=== PATIENT | female | born 1990 | race Caucasian/White ===

== ENCOUNTER → 2021-09-06 13:19 | Outpatient (CLI) | payer OTHER, SELFPAY ==
--- NOTE | 2021-09-06 13:23 | DI.US.S_ITS ---
PROCEDURE: US OB <= 14 WEEKS FETUS INDICATIONS: DATING. LMP 07/05/21 OUTSIDE/PRIOR DATING DATA: Last menstrual period (LMP): 07/05/2021 LMP-based estimated date of delivery (KAM[facility]): 04/11/2022. First dating scan (date and location): 09/06/2021. Estimated date of delivery (K[facility]) from first dating scan: 04/12/2022 The calculations are made using the study generated KAMRON of 04/12/2022. TECHNIQUE: Real-time scanning was performed of the fetus and maternal pelvic organs, with image documentation. Endovaginal scanning was also performed to better visualize the fetus and maternal ovaries. COMPARISON: None. FINDINGS: Embryo: Single intrauterine gestational sac is seen with fetus and yolk sac seen. [place]-rump length measures 2.2 cm. Estimated gestational age is 8 weeks, 6 days. Heart rate: 171 beats per minute. Maternal organs: Ovaries are visualized and are within normal limits. Incidentally noted of moderate right renal palliative desist and mild dilatation of proximal right ureter. There is also mild left renal caliectasis and proximal hydroureter. Moderate maternal bladder postvoid residual is seen measures 201 cc. IMPRESSION: 1. Single intrauterine gestational sac with fetus and yolk sac seen. heart rate is 171 beats per minute. Estimated gestational age is 8 weeks, 6 days. 2. Normal appearing bilateral ovaries. 3. Incidentally noted of moderate right-sided hydronephrosis and proximal hydroureter and mild left-sided hydronephrosis and proximal hydroureter. Moderate postvoid residual in maternal bladder is also seen as above. We strive to produce accurate, complete, and clear reports of imaging services. To assist us in improving patient care, this report was composed using standard report templates and voice recognition software. Therefore, it may contain abnormal punctuation, insertions and/or omissions. Occasional wrong-word or sound-alike substitutions may occur. Though we review the report and make efforts to correct it, we do recommend that the report be read carefully in proper context to recognize any text inaccuracies. Dictated by: Alberto Ariza M.D. on 09/06/2021 at 15:56 Approved by: Alberto Ariza M.D. on 09/06/2021 at 15:59
[2021-09-06 14:43] LABS: Appearance Urine UA CLEAR; Bilirubin Urine UA NEGATIVE (NEGATIVE); Glucose Urine UA NEGATIVE (Negative); Ketones Urine UA NEGATIVE (NEGATIVE); Leukocyte Esterase Urine UA NEGATIVE (NEGATIVE); Nitrite Urine UA NEGATIVE (Negative); Occult Blood Urine UA NEGATIVE (Negative); Protein Urine UA NEGATIVE (Negative); Specific Gravity Urine UA <=1.005 (1.000-1.035); Urobilinogen Urine UA 0.2 E.U./dL (0.2)
[2021-09-06 14:46] LABS: pH Urine UA 6.5 (4.5-8.0)
[2021-09-06 14:47] LABS: Color Urine UA STRAW
[2021-09-06 14:54] LABS: Add Manual Diff / Slide Review NO; Basophils Absolute Auto 0 /uL (0-100); Basophils Percent Auto 0.4 % (0-2); Eosinophils Absolute Auto 100 /uL (0-450); Eosinophils Percent Auto 0.8 % (2-4); Hematocrit 37.3 % (36-46); Hemoglobin 12.9 g/dL (12.0-16.0); Lymphocytes Absolute Auto 2000 /uL (1100-4500); Lymphocytes Percent Auto 21.3 % (25-40); Mean Corpuscular HGB Conc 34.5 % (30-36); Mean Corpuscular Hemoglobin 29.4 PG (26-34); Mean Corpuscular Volume 85.1 fL (80-100); Monocytes Absolute Auto 500 /uL (0-900); Monocytes Percent Auto 5.7 % (3-14); Neutrophils Absolute Auto 6800 /uL (1500-7000); Neutrophils Percent Auto 71.8 % (50-75); Platelet Count 344 X10^3/uL (150-400); Red Blood Cell Count 4.38 X10^6/uL (4.0-5.2); Red Cell Distribution Width 12.8 % (11.6-14.8); White Blood Cell Count 9.5 X10^3/uL (4.5-11.0)
[2021-09-06 16:59] LABS: Hepatitis B Surface Antigen NEGATIVE s/c (NEGATIVE); Rubella Antibody IgG 89.9 IU/mL (>15)
[2021-09-06 17:16] LABS: HIV 1 & 2 Ab/Ag 4th Gen Combo NEGATIVE (NEGATIVE); Hep C Virus Ab w/Reflex Quant NEGATIVE s/c (NEGATIVE)
[2021-09-07 05:26] LABS: RPR Screen Non Reactive (Non Reactive)
[2021-09-07 08:08] LABS: Varicella IgG Antibody 1278 index (Immune >165)
== END ==
PROVIDERS: Referring Provider Family Medicine; Visit Provider Family Medicine
DX: O99.891 Other specified diseases and conditions complicating pregnancy (principal); N13.30 Unspecified hydronephrosis; Z3A.08 8 weeks gestation of pregnancy
CPT/HCPCS: 36415; 76801; 76817; 80055; 81003; 86787; 86803; 86850; 86900; 86901; 87086; 87389

== ENCOUNTER → 2021-11-21 14:48 | Outpatient (CLI) | payer OTHER, SELFPAY ==
[2021-11-28 18:35] LABS: AFP, Serum 61.1 ng/mL (.); Estriol, Free 2.61 ng/mL (.); Inhibin A, Dimeric 199.39 pg/mL (.); Inhibin A, MoM 1.33 (.); Maternal Ethnicity Caucasian (.); Maternal Weight 197 lbs (.); Number of Fetuses No (.); OSBR Risk 1 IN 5926 (.); Results Report (.); Test Results *Screen Negative* (.); hCG, MoM 3.34 (.); hCG, Serum 72752 mIU/mL (.)
== END ==
PROVIDERS: Referring Provider Family Medicine; Visit Provider Family Medicine
DX: Z34.92 Encounter for supervision of normal pregnancy, unspecified, second trimester (principal)
CPT/HCPCS: 36415; 82105; 82677; 84702; 86336

== ENCOUNTER → 2021-12-05 14:08 | Outpatient (CLI) | payer OTHER, SELFPAY ==
--- NOTE | 2021-12-05 14:09 | DI.US.S_ITS ---
PROCEDURE: US OB >= 14 WEEKS FETUS INDICATIONS: anatomy scan OUTSIDE/PRIOR DATING DATA: Last menstrual period (LMP): July 05, 2021 LMP-based estimated date of delivery ([facility]): April 11, 2022 First dating scan (date and location): September 06, 2021 Estimated date of delivery (K[facility]) from first dating scan: April 12, 2022 The calculations are made using the ultrasound KAM[facility] of April 12, 2022 TECHNIQUE: Real-time scanning was performed of the fetus, with image documentation and biometric measurements. Endovaginal scanning: Per 4 COMPARISON: [facility], , OB <= 14 WEEKS FETUS, 09/06/2021, 13:39. FINDINGS: General: A single living intrauterine gestation is present. Presentation: Transverse with head left. Placenta: Placental position is anterior, without previa. Amniotic fluid index: 18.1 cm, normal range is 5-24 cm. Single deepest vertical pocket is 5.2 cm. heart rate: 153 beats per minute. Maternal cervical canal: Closed and 4.4 cm long. Normal lower limit is 2.5 cm. biometrics: Biparietal diameter: 22 weeks 6 days Head circumference: 22 weeks 4 days Abdominal circumference: 22 weeks 0 days Femur length: 20 weeks 5 days Estimated gestational age by initial ultrasound: 21 weeks 5 days Composite gestational age from present scan: 22 weeks 0 days Estimated weight and percentile: 436 grams; 38th percentile Anatomic survey: Neuro: Ventricles are non-dilated at less than 10 mm. Cisterna magna is normal at 3-11 mm. Cerebellum is normal in size and morphology. Nuchal skin fold: Normal at less than 6 mm between 14-21 weeks gestational age. Face: Nose and lips, facial profile are normal. Spine: No evidence for spina bifida. Heart: 4-chambered heart is present, with normal ventricular outflow tracts. Diaphragm: Diaphragm is intact. Stomach: Left-sided stomach is present. Kidneys: No hydronephrosis. Normal is less than 5 mm in 2nd trimester, less than 7 mm in 3rd trimester. Cord: 3-vessel cord has orthotopic insertion. Bladder: Normal in size. Extremities: All 4 extremities identified. IMPRESSION: 1. Single living intrauterine with appropriate interval growth. 2. Kidneys difficult to visualized due to active fetus. Kidneys are grossly within normal limits. Additional anatomic survey is normal. Dictated by: Tanisha Iqbal MD, PhD on 12/05/2021 at 16:40 Approved by: Tanisha Iqbal MD, PhD on 12/05/2021 at 16:44
== END ==
PROVIDERS: Referring Provider Family Medicine; Visit Provider Family Medicine
DX: Z36.89 Encounter for other specified antenatal screening (principal); Z3A.22 22 weeks gestation of pregnancy
CPT/HCPCS: 76811

== ENCOUNTER → 2022-01-16 10:10 | Outpatient (CLI) | payer OTHER, SELFPAY ==
[2022-01-16 11:54] LABS: Hematocrit 34.5 % (36-46)
[2022-01-16 12:07] LABS: GTT (PREG) 1 Hour PP 50gm Dose 127 mg/dL (76-139)
== END ==
PROVIDERS: Referring Provider Family Medicine; Visit Provider Family Medicine
DX: Z34.90 Encounter for supervision of normal pregnancy, unspecified, unspecified trimester (principal); Z3A.26 26 weeks gestation of pregnancy
CPT/HCPCS: 36415; 82950; 85014; 85018

== ENCOUNTER → 2022-01-18 15:15 | Outpatient (CLI) | payer OTHER, SELFPAY ==
[2022-01-18 16:55] LABS: Urine N gonorrhoeae NOT DETECTED
[2022-01-18 17:42] LABS: Urine Chlamydia NOT DETECTED
== END ==
PROVIDERS: Visit Provider Physician Assistant Medical
DX: Z34.02 Encounter for supervision of normal first pregnancy, second trimester (principal); Z3A.28 28 weeks gestation of pregnancy
CPT/HCPCS: 87491; 87591

== ENCOUNTER → 2022-02-19 16:51 | Outpatient (CLI) | payer OTHER, SELFPAY ==
[2022-02-19 18:23] LABS: Appearance Urine UA CLEAR; Bilirubin Urine UA NEGATIVE (NEGATIVE); Color Urine UA YELLOW; Glucose Urine UA NEGATIVE (Negative); Ketones Urine UA NEGATIVE (NEGATIVE); Leukocyte Esterase Urine UA TRACE (NEGATIVE); Nitrite Urine UA NEGATIVE (Negative); Occult Blood Urine UA NEGATIVE (Negative); Protein Urine UA NEGATIVE (Negative); Specific Gravity Urine UA <=1.005 (1.000-1.035); Urobilinogen Urine UA 0.2 E.U./dL (0.2)
[2022-02-19 18:31] LABS: pH Urine UA 6.5 (4.5-8.0)
[2022-02-19 18:37] LABS: Bacteria Urine Few (2-10); Culture Indicated Urine Specimen Cultured; RBC Urine None Seen (0-5/HPF); WBC Urine 5-10/HPF (0-5/HPF)
== END ==
PROVIDERS: Referring Provider Family Medicine; Visit Provider Family Medicine
DX: R30.0 Dysuria (principal)
CPT/HCPCS: 81003; 81015; 87086

== ENCOUNTER → 2022-03-13 14:11 | Outpatient (CLI) | payer OTHER, SELFPAY ==
[2022-03-14 09:13] LABS: Strep Grp B PCR POS for Grp B Strep
== END ==
PROVIDERS: Visit Provider Family Medicine
DX: Z34.93 Encounter for supervision of normal pregnancy, unspecified, third trimester (principal); Z3A.36 36 weeks gestation of pregnancy
CPT/HCPCS: 87186; 87653

== ENCOUNTER → 2022-03-22 11:02 | Outpatient (CLI) | payer OTHER, SELFPAY ==
[2022-03-22 14:27] LABS: Add Manual Diff / Slide Review NO; Basophils Absolute Auto 0 /uL (0-100); Basophils Percent Auto 0.5 % (0-2); Eosinophils Absolute Auto 100 /uL (0-450); Eosinophils Percent Auto 0.8 % (2-4); Hematocrit 34.5 % (36-46); Hemoglobin 11.8 g/dL (12.0-16.0); Lymphocytes Absolute Auto 1900 /uL (1100-4500); Mean Corpuscular HGB Conc 34.3 % (30-36); Mean Corpuscular Hemoglobin 28.6 PG (26-34); Mean Corpuscular Volume 83.2 fL (80-100); Monocytes Absolute Auto 600 /uL (0-900); Monocytes Percent Auto 6.6 % (3-14); Neutrophils Absolute Auto 6100 /uL (1500-7000); Neutrophils Percent Auto 70.1 % (50-75); Platelet Count 238 X10^3/uL (150-400); Red Blood Cell Count 4.14 X10^6/uL (4.0-5.2); Red Cell Distribution Width 13.7 % (11.6-14.8); White Blood Cell Count 8.6 X10^3/uL (4.5-11.0)
[2022-03-22 14:59] LABS: Alanine Aminotransferase 15 IU/L (<35); Albumin 3.1 g/dL (3.5-5.0); Albumin Globulin Ratio 1.2 (1.0-2.8); Alkaline Phosphatase 126 U/L (38-126); Aspartate Aminotransferase 27 IU/L (14-36); BUN Creatinine Ratio 9.1 (6-22); Bilirubin Total 0.5 mg/dL (0.2-1.3); Blood Urea Nitrogen 6 mg/dL (7-17); Calcium 8.5 mg/dL (8.4-10.2); Carbon Dioxide 22 mmol/L (22-32); Chloride 105 mmol/L (98-107); Estimated Glomerular Filt Rate > 60 mL/min (>60); Globulin 2.6 g/dL (1.7-4.1); Glucose 118 mg/dL (70-100); HEMOLYSIS < 15 (0-50); Potassium 3.7 mmol/L (3.4-5.1); Sodium 135 mmol/L (137-145); Total Protein 5.7 g/dL (6.3-8.2)
[2022-03-22 16:33] LABS: Creatinine Urine Random 64.6 mg/dL; Protein (Total) Urine Random 17 mg/dL (0-12); Protein Creatinine Ratio Urine 0.26 GRAM/24H
== END ==
PROVIDERS: Referring Provider Family Medicine; Visit Provider Family Medicine
DX: O13.9 Gestational [pregnancy-induced] hypertension without significant proteinuria, unspecified trimester (principal)
CPT/HCPCS: 36415; 80053; 82570; 84156; 85025

== ENCOUNTER 2022-03-23 11:02 | Outpatient (CLI) | payer OTHER, SELFPAY ==
--- NOTE | 2022-03-23 11:24 | P.TNLD_ITS ---
Visit Information Visit Information Date of evaluation: 03/23/22 Primary OB Provider: Nicole Huber Reason for Evaluation: Yes non-stress test non-stress test reason: hypertension/pre-eclampsia Vital Signs Vital Signs: Temperature 35.9 blood pressure 132/88 heart rate 85 Blood pressure 127/88 heart rate 88 Blood pressure 122/81 rate 90 [facility] Surgical History H/O wisdom tooth extraction Social History marital status: household members: spouse and friend(s) lives independently: Yes housing: house pets and animals: Yes (Dog) education level: college occupational status: employed current occupational exposures/hazards: No seatbelt use: always water heater temp set < 120 deg: Yes working smoke detector in home: Yes fire extinguisher in home: Yes carbon monox detector in home: Yes firearms in home: Yes firearms unloaded and locked: Yes do you feel safe at home: Yes Smoking Status: Never smoker second hand exposure: No alcohol intake: former substance use type: does not use during the past year weight has: increased > 10 lbs well-balanced diet: daily or most days daily servings fruits/ve-4 caffeine: Yes Type(s) of exercise: walking and weight lifting Evaluation Evaluation Baseline heart rate: 130 Variability: Moderate (11-25) monitor accelerations: Present Monitor Decelerations: Absent Category of Tracing: Reactive Diagnosis, Plan/Disposition Final Diagnosis (1) 37 weeks gestation of : Status: Acute Plan/Disposition Plan: 32-year-old at 37 weeks and 2 days gestation with concern for elevated blood pressures in clinic yesterday (112/90 and 120/90). She was without headaches, vision changes, right upper quadrant pain or edema. NST was unable to be completed yesterday due to staffing and no available rooms in the center however she completed preeclampsia labs which were all normal. In the center today blood pressures are all within normal limits and NST reactive. She was asked been checking her blood pressures at home and call if persistently greater than 140/90. Follow-up in clinic as scheduled a return to the center as needed. OB Disposition: home
== END 2022-03-23 11:45 | disposition home or self-care (01) ==
LOC: LABOR 13:10 → OB 03-29 07:21
PROVIDERS: Referring Provider Family Medicine; Visit Provider Family Medicine
DX: O26.893 Other specified pregnancy related conditions, third trimester (principal); R03.0 Elevated blood-pressure reading, without diagnosis of hypertension; Z3A.37 37 weeks gestation of pregnancy
CPT/HCPCS: 59025; G0378; G0379

== ENCOUNTER 2022-03-29 12:01 | Outpatient (CLI) | payer OTHER, SELFPAY | END 2022-03-29 12:55 | disposition home or self-care (01) | LOC: LABOR 14:00 → OB 03-30 07:53 | PROVIDERS: Referring Provider Family Medicine; Visit Provider Family Medicine | DX: O26.893 Other specified pregnancy related conditions, third trimester (principal); R03.0 Elevated blood-pressure reading, without diagnosis of hypertension; Z3A.38 38 weeks gestation of pregnancy | CPT/HCPCS: 59025; G0378; G0379 ==

== ENCOUNTER 2022-04-04 20:18 | Inpatient (IN) | payer OTHER, SELFPAY ==
[2022-04-04 22:12] LABS: Add Manual Diff / Slide Review NO; Basophils Absolute Auto 100 /uL (0-100); Basophils Percent Auto 0.7 % (0-2); Eosinophils Absolute Auto 100 /uL (0-450); Eosinophils Percent Auto 1.2 % (2-4); Lymphocytes Absolute Auto 2400 /uL (1100-4500); Lymphocytes Percent Auto 25.4 % (25-40); Mean Corpuscular HGB Conc 34.2 % (30-36); Mean Corpuscular Hemoglobin 28.5 PG (26-34); Mean Corpuscular Volume 83.3 fL (80-100); Monocytes Absolute Auto 700 /uL (0-900); Monocytes Percent Auto 7.5 % (3-14); Neutrophils Absolute Auto 6200 /uL (1500-7000); Neutrophils Percent Auto 65.2 % (50-75); Platelet Count 247 X10^3/uL (150-400); Red Cell Distribution Width 14.2 % (11.6-14.8); White Blood Cell Count 9.5 X10^3/uL (4.5-11.0)
[2022-04-04] MEDS: DINOPROSTONE VAG (CERVIDIL) 10 MG VAG (22:12)
[2022-04-04 22:27] VITALS: BP 138/80
[2022-04-04 22:30] LABS: Aspartate Aminotransferase 24 IU/L (14-36); BUN Creatinine Ratio 10.8 (6-22); Blood Urea Nitrogen 7 mg/dL (7-17); Calcium 9.4 mg/dL (8.4-10.2); Carbon Dioxide 17 mmol/L (22-32); Chloride 110 mmol/L (98-107); Estimated Glomerular Filt Rate > 60 mL/min (>60); Glucose 124 mg/dL (70-100); HEMOLYSIS < 15 (0-50); Potassium 3.6 mmol/L (3.4-5.1); Sodium 136 mmol/L (137-145); Uric Acid 6.3 mg/dL (2.5-6.2)
[2022-04-04 22:35] LABS: COVID19 -Nasal RAPID Negative (Negative)
[2022-04-04] MEDS: ZOLPIDEM 5 MG TABLET PO (23:00)
[2022-04-05 01:24] LABS: Creatinine Urine Random 35.3 mg/dL; Protein (Total) Urine Random 18 mg/dL (0-12)
--- NOTE | 2022-04-05 07:22 | P.HPOB_ITS ---
OB HPI Date/Time Date of admission: 04/05/22 Date Patient Seen: 04/05/22 Time Patient Seen: 07:30 History of Present Condition Chief complaint: observation of labor [facility] Calculator Estimated Delivery Date Method Current WG Current Estimate 04/11/22 LMP (Uncertain) 39w 1d Other Estimates 04/12/22 Ultrasound #1 39w 0d Estimated Gestational Age (weeks): 39w1d : 1 Para: 0 Narrative: Old at 39 weeks and 1 day gestation here for induction due to gestational hypertension. Blood pressure has been creeping up however patient has been without headaches, vision changes, right upper quadrant pain or edema. Denies contractions, leaking or bleeding. Good movement. She came in last night for cervical ripening with Cervidil. care: good care, initiated at week # (11), number of visits (11) and pounds weight gain (27) Dating criteria OB: LMP confirmed by 1st trimester US Ultrasounds: normal mid trimester US Obstetrical complications: preeclampsia Medical complications OB: none Indications Indication for induction OB: gestational HTN/pre-eclampsia Preadmission Labs Last OB Lab Results: Blood Type O Positive 04/04/22 21:25 Antibody Screen Negative 04/04/22 21:25 Hematocrit 35.0 % (36-46) L 04/04/22 21:25 Hemoglobin 12.0 g/dL (12.0-16.0) 04/04/22 21:25 Hepatitis B Surface Antigen Negative s/c (NEGATIVE) 09/06/21 14 :07 Hepatitis C Antibody Negative s/c (NEGATIVE) 09/06/21 14:07 Rubella Antibody 89.9 IU/mL (>15) 09/06/21 14:07 Varicella-Zoster IgG Antibody 1278 index (Immune >165) 09/06/21 14:07 Glucose 1 Hour 127 mg/dL (76-139) 01/16/22 11:23 Group B Streptococcus (PCR) Pos for grp b strep H 03/13/22 14:1 1 -: Chlamydia screen: negative and Urine: negative Genetic Screens: Quad screen: Normal External Labs -: Urine: negative Evaluation Evaluation Baseline heart rate: 120 Variability: Moderate (11-25) monitor accelerations: Present Monitor Decelerations: Absent Category of Tracing: Reactive [facility] Surgical History H/O wisdom tooth extraction Social History marital status: household members: spouse and friend(s) lives independently: Yes housing: house pets and animals: Yes (Dog) education level: college occupational status: employed current occupational exposures/hazards: No seatbelt use: always water heater temp set < 120 deg: Yes working smoke detector in home: Yes fire extinguisher in home: Yes carbon monox detector in home: Yes firearms in home: Yes firearms unloaded and locked: Yes do you feel safe at home: Yes Smoking Status: Never smoker second hand exposure: No alcohol intake: former substance use type: does not use during the past year weight has: increased > 10 lbs well-balanced diet: daily or most days daily servings fruits/ve-4 caffeine: Yes Type(s) of exercise: walking and weight lifting Meds Home Medications and Allergies Home Medications Medication Instructions Recorded Confirmed Type prenat.vits,jack,[id number] 1 tab PO DAILY #100 tabs 09/18/21 01/18/22 Rx double electric breast pump and #1 ea 02/13/22 02/13/22 Rx supplies Allergies Allergy/AdvReac Type Severity Reaction Status Date / Time Penicillins Allergy Mild Verified 01/18/22 11:05 Review of Systems Review of Systems ROS: Yes All systems reviewed with the patient and are negative except as otherwise documented OB Exam Narrative Exam Narrative: Temperature 98.3? blood pressure 110/62 heart rate 81 HENMT Head: normal to inspection Mouth: oral mucosae normal Eyes General: appearance normal, both eyes and all related structures Resp Effort & Inspection: normal respiratory effort Auscultation: clear to auscultation bilaterally Cardio Rate: regular rate Rhythm: regular rhythm Heart Sounds: S1 normal and S2 normal Extremities Lower extremity: Yes normal to inspection; No edema DTR's: Rt Patellar: 2+ and Lt Patellar: 2+ Presentation: vertex Estimated Weight (lbs): 7 Objective Labs Result Diagrams: 04/04/22 21:25 04/04/22 21:25 Labs: Laboratory Results - last 24 hr 04/04/22 04/04/22 04/04/22 21:25 21:25 21:25 WBC 9.5 RBC 4.20 Hgb 12.0 Hct 35.0 L MCV 83.3 MCH 28.5 MCHC 34.2 RDW 14.2 Plt Count 247 Neut % (Auto) 65.2 Lymph % (Auto) 25.4 Terrell % (Auto) 7.5 Eos % (Auto) 1.2 L Baso % (Auto) 0.7 Neut # (Auto) 6200 Lymph # (Auto) 2400 [place]rell # (Auto) 700 Eos # (Auto) 100 Baso # (Auto) 100 Sodium 136 L Potassium 3.6 Chloride 110 H Carbon Dioxide 17 L BUN 7 Creatinine 0.65 Estimated GFR > 60 BUN/Creatinine Ratio 10.8 Glucose 124 H Uric Acid 6.3 H Calcium 9.4 AST 24 U Random Total Protein Urine Creatinine Protein/Creatinin Ratio SARS-CoV-2 (PCR) Negative Blood Type Antibody Screen 04/04/22 04/05/22 21:25 00:30 WBC RBC Hgb Hct MCV MCH MCHC RDW Plt Count Neut % (Auto) Lymph % (Auto) Terrell % (Auto) Eos % (Auto) Baso % (Auto) Neut # (Auto) Lymph # (Auto) Terrell # (Auto) Eos # (Auto) Baso # (Auto) Sodium Potassium Chloride Carbon Dioxide BUN Creatinine Estimated GFR BUN/Creatinine Ratio Glucose Uric Acid Calcium AST U Random Total Protein 18 H Urine Creatinine 35.3 Protein/Creatinin Ratio 0.50 SARS-CoV-2 (PCR) Blood Type O Positive Antibody Screen Negative Assessment and Plan Assessment and Plan Assessment and Plan narrative: 32-year-old at 39 weeks and 1 day undergoing induction for hypertension, found to meet criteria for preeclampsia without severe features on admission based on elevated urine protein creatinine ratio. Platelets, liver enzymes and renal function all normal and she is without symptoms of preeclampsia. Blood pressure has been normal since admission as well. Cervidil was placed last night at approximately 10:00 p.m. and will be removed after 12 hours. Will reassess Echeverria score at that time, may need further ripening before starting Pitocin. She is GBS positive. There is a penicillin allergy listed in her chart however she does not recall a reaction to penicillin at any time in her life and believes this was an error placed in her Mobile Location, [place] medical chart. Will plan for penicillin once in active labor. Reassess in 2 hours after Cervidil was removed.
[2022-04-05] MEDS: LACTATED RINGERS 1,000 ML 100 ML IV (08:30)
--- NOTE | 2022-04-05 11:08 | PM.OBPNLAB ---
Date/Time Date Patient Seen: 04/05/22 Time Patient Seen: 10:50 Pain Control Comments: Comfortable, feels mild cramping she rates as 1/10. Pelvic Exam Dilation (cm): 0.5 Effacement (%): 50 station: -3 Contractions Contraction frequency (min): 2 Status status: Category l Heart Rate Baseline: 150 Monitor Accelerations: Present Monitor Decelerations: Absent Monitor Variability: Moderate Assessment and Plan Assessment: induction ongoing Comments: 32 year old at 39+1 weeks gestation undergoing induction for pre-eclampsia without severe features. BP has been in the normal range without intervention and she is without sx of pre-eclampsia. Cervidal was removed with modest cervical change. She is kaley regularly though not feeling more than mild cramping. Discussed options for further cervical ripening. If contractions space, will give Cytotec. If contractions continue, will seek assistance for hood catheter placement as cervix is quite posterior.
--- NOTE | 2022-04-05 16:48 | PM.OBPNLAB ---
Date/Time Date Patient Seen: 04/05/22 Pain Control Pain control: tolerating well Comments: Hood bulb just removed by RN after being found in the vagina. She feels much better after removal. Pain had been up to 8/10 with contractions while hood bulb was in placed but now she is not feeling regular contractions. Pelvic Exam Dilation (cm): 4.5 Effacement (%): 70 station: -3 Amniotic membrane status: Intact Contractions Monitor mode: External Contraction frequency (min): 3 Contraction pattern: Regular Status status: Category l Heart Rate Baseline: 130 Monitor Accelerations: Present Monitor Decelerations: Absent Monitor Variability: Moderate Assessment and Plan Assessment: induction ongoing Comments: 32-year-old at 39 weeks and 1 day gestation undergoing induction for preeclampsia without severe features. At 12:30 p.m. Sonja Clay CNM, placed a 16 Pashto hood bulb into the cervix and inflated the balloon with 60 ml of normal saline for mechanical cervical ripening (contractions were too frequent for Cytotec). The balloon was found in the vagina by RN just before 5 PM. Echeverria score is now favorable for pitocin. Will start pitocin and PCN for GBS prophylaxis. Epidural when desired. Blood pressures remain normal.
[2022-04-05] MEDS: PENICILLIN G POTASSIUM 5,000,000 UNIT in DEXTROSE 5% IN WATER 250 ML 250 UNIT IV (17:35)
[2022-04-05] MEDS: OXYTOCIN PREMIX 30 UNIT/500 ML PLAST..BAG IV (17:36)
[2022-04-05] MEDS: PENICILLIN G POTASSIUM 3,000,000 UNIT/50 ML FROZ.PIGGY 100 UNIT IV (21:29)
--- NOTE | 2022-04-05 21:31 | PM.OBPNLAB ---
Date/Time Date Patient Seen: 04/05/22 Time Patient Seen: 21:32 Pain Control Pain control: tolerating well Comments: Denies pain. Pelvic Exam Dilation (cm): 5 Effacement (%): 70 station: -2 Amniotic membrane status: Ruptured (AROM for clear fluid) Contractions Monitor mode: External Pitocin rate (mU/min): 10 Contraction frequency (min): 4 Contraction pattern: Regular Status status: Category l Heart Rate Baseline: 140 Monitor Accelerations: Present Monitor Decelerations: Absent Monitor Variability: Moderate Assessment and Plan Assessment: induction ongoing Plan: continuous present management Comments: 32 year old at 39+1 weeks with pre-eclampsia with out severe features s/p Cervidal and hood bulb, now on pitocin. AROM for clear fluid. Continue pitocin titration. Epidural upon request. Anticipate .
[2022-04-06] MEDS: PENICILLIN G POTASSIUM 3,000,000 UNIT/50 ML FROZ.PIGGY 100 UNIT IV ×3 (01:25→09:55)
--- NOTE | 2022-04-06 05:35 | PM.OBPNLAB ---
Date/Time Date Patient Seen: 04/06/22 Time Patient Seen: 05:25 Pain Control Pain control: epidural Comments: Comfortable with epidural, does not feel contractions or pressure. Pelvic Exam Dilation (cm): 6 Effacement (%): 90 station: -2 Amniotic membrane status: Ruptured (AROM clear fluid) Contractions Monitor mode: External Contraction frequency (min): 4 Contraction pattern: Regular Status status: Category l Heart Rate Baseline: 140 Monitor Accelerations: Present Monitor Decelerations: Absent Monitor Variability: Moderate Assessment and Plan Assessment: induction ongoing Comments: 32 year old at 39+2 weeks with pre-eclampsia with out severe features s/p Cervidal, hood bulb and AROM for clear fluid. At 3 AM she began having recurrent late and variable decels so RN gave a fluid bolus, changed positions, turned off pitocin and gave oxygen with improvement by 5 AM, at which time this physician was called. SVE without much progress, now 690/-2 with cervix anterior though head not well applied. Contractions have spaced out since pitocin was shut off. EFM now category 1 so will restart pitocin. Requested peanut ball to help with descent of the head. Discussed possible need for primary for intolerance of labor though not yet indicated.
--- NOTE | 2022-04-06 06:50 | PM.OBPNLAB ---
Date/Time Date Patient Seen: 04/06/22 Time Patient Seen: 06:50 Pain Control Pain control: epidural Pelvic Exam Dilation (cm): 6.5 Effacement (%): 90 station: -2 Amniotic membrane status: Ruptured (AROM clear fluid) Contractions Monitor mode: External Pitocin rate (mU/min): 4 Contraction frequency (min): 7 Contraction pattern: Regular Status status: Category ll Heart Rate Baseline: 140 Monitor Accelerations: Present Monitor Decelerations: Late and Variable Monitor Variability: Moderate Assessment and Plan Comments: 32 year old at 39+2 weeks undergoing induction for pre-eclampsia without severe features. BP well-controlled. Progress has been very slow overnight however pitocin was turned off at 3 AM due to intolerance and not restarted until 5:30 AM. She is now having variables vs late decelerations though variability remains moderate. Contractions not yet back in a good pattern. IUPC placed for amnioinfusion and to better quantify contractions. If no improvement in EFM or if unable to titrate pitocin, will discuss primary section.
[2022-04-06] MEDS: FENT 2MCG/ML BUPIV 0.125% EPI 200 MCG/100 ML PLAST..BAG 8 MCG EPIDURAL (07:23)
--- NOTE | 2022-04-06 12:22 | P.PNOB_ITS ---
Date/Time Date Patient Seen: 04/06/22 Time Patient Seen: 12:00 Pain Control Pain control: tolerating well and epidural Pelvic Exam Dilation (cm): 8 Effacement (%): 90 station: -1 Amniotic membrane status: Ruptured (AROM clear fluid) Contractions Monitor mode: External Pitocin rate (mU/min): 0 Contraction frequency (min): 7 Contraction pattern: Regular Status status: Category ll Heart Rate Baseline: 120 Monitor Accelerations: Present Monitor Decelerations: Late Monitor Variability: Moderate Assessment and Plan Assessment: active labor Plan: Comments: 32 year old at 39+2 weeks undergoing induction for pre-eclampsia without severe features. Pitocin was restarted this morning. IUPC placed for amnioinfusion and to measure adequacy of contractions. Contractions have not yet been adequate however unable to increase pitocin due to late decelerations. SVE with RN was unchanged so pitocin shut off at 11 AM. Repeat exam an hour later had changed to 8/90/-1 however late decelerations persisted (not recurrent). Variability remains moderate. Discussed primary for non- reassuring heart tones with the patient, her and mother and they are in agreement. Reviewed risks of bleeding, infection and injury to surrounding organs. Consent signed. She is accepting of a blood transfusion if needed. Will give Ancef 2 g prior to surgery.
--- NOTE | 2022-04-06 12:38 | PM.PREOP ---
Pre-operative Note COVID-19 COVID-19 status: Negative Result date/Date tested (Pos, Neg/Pending): 04/04/22 Interval Note History & Physical reviewed/Exam performed by Physician: Yes Changes to H&P: No
--- NOTE | 2022-04-06 12:44 | SUR.OPER ---
Supine on Padded OR bed, head on pillow, safety belt at thigh, arms secured on padded arm boards at <90 degrees abduction. Bump under right buttock. Legs uncrossed with pillow under knees, gel pad to heels, tape over blanket to lower legs.
[2022-04-06] MEDS: CEFAZOLIN 2 GM/100 ML PREMIX 100 ML IV (13:04)
[2022-04-06] MEDS: LACTATED RINGERS 1,000 ML 100 ML IV (13:26)
[2022-04-06] MEDS: ACETAMINOPHEN 1,000 MG/100 ML IV (13:45)
--- NOTE | 2022-04-06 14:14 | SUR.OPER ---
Viable baby boy delivered at 1335. Placenta and blood tubes X2 given to L&D RN.
--- NOTE | 2022-04-06 14:33 | P.OP_ITS ---
Operative Date/Time/Diagnoses Date of procedure: 04/06/22 Time of procedure: 13:15 Pre-op diagnosis: Nonreassuring heart tones 39 weeks of Preeclampsia without severe features Post-op diagnosis: same Procedure & Clinicians Procedure: Primary low-transverse section Same procedure as scheduled: Yes Indications: Nonreassuring heart tones 39 weeks of Preeclampsia without severe features Surgeon: Nicole Huber Coding Compliance Manager: Bailee Robert Reason for Coding Compliance Manager: Dr. Robert was essential to the case for difficult delivery of the infant requiring vacuum, suturing, retraction and control of bleeding Anesthesia Type: Epidural Operative Notes Findings: Vigorous male , normal uterus, tubes and ovaries Closure Type: primary Specimen(s): cord blood and cord pH Intraoperative meds administered: Duramorph, Ketorolac and Pitocin Applied: Catheter Estimated Blood Loss (mL): 500 Procedure in detail: The patient was taken to the operating room where she was transferred to the operating table. She was prepped and draped in the usual sterile fashion. A timeout was performed. After epidural analgesia was found to be adequate, a Pfannenstiel skin incision was made 2 fingerbreadths above the pubic symphysis and carried through to the underlying layer fascia. The fascia was nicked in the midline and the incision extended bilaterally with Pizano scissors. The superior aspect of the fascial incision was grasped with a Bambi clamps, elevated, and the underlying rectus muscles dissected off sharply and bluntly. Attention was then turned to the inferior aspect of this incision which in a similar fashion was grasped with a Bambi clamps, elevated, and the underlying rectus muscles dissected off sharply and bluntly. The rectus muscles were in the midline. The peritoneum was identified, grasped between 2 hemostats, and entered sharply with the Metzenbaum scissors. This incision was extended superiorly and inferiorly with good visualization of the bladder. The bladder blade was inserted. The vesicouterine peritoneum was identified, grasped with the pickup, and entered sharply with the Metzenbaum scissors. This incision was extended bilaterally, and the bladder flap was created digitally. The bladder blade was reinserted. The lower uterine segment was incised in a transverse fashion with the scalpel. Upon entering the amniotic sac there was a large amount clear amniotic fluid. There was difficulty delivering the infant's head so Dr. Garde cut the uterus vertically approximately 2.5 cm. The 's head was delivered with vacuum assistance by Dr. Robert. There was a nuchal cord which was reduced. The remainder of the body delivered without difficulty. The cord was double clamped and cut. A segment was collected for cord pH. The was handed off to waiting RN and RT. The placenta was delivered manually. The uterus was cleared of all clots and debris. The uterine incision was repaired with #1 chromic in a running interlocking fashion and a second layer the same suture was used for an imbricating layer. The same suture was used to repair the vertical segment of the incision prior to closing the horizontal segment. Hemostasis was achieved. The tubes and ovaries were examined and were found to be normal. The gutters were cleared of all clots and debris. The bladder flap was reapproximated using 2-0 Vicryl in a running fashion. The parietal peritoneum was closed using 2-0 Vicryl in a running fashion. The fascia was reapproximated using 0 Vicryl in a running fashion. Subcutaneous layer was copiously irrigated with warm normal saline. 3 simple interrupted sutures of 3-0 Vicryl were placed to reapproximate the subcutaneous layer. The skin was closed with 4-0 Monocryl in a subcuticular fashion. Steri- Strips were placed. An Aquacel dressing was placed. The uterus was expressed of a small amount of old blood. Sponge, lap, and instrument counts were correc t. The patient tolerated the procedure well, and was taken to PACU in stable condition. Baby 1: Gender: Male Presentation: vertex Position: Occiput Posterior Placental Delivery Description: Expressed Cord Vessel Description: Nuchal Cord score (1 min): 8 score (5 min): 9 weight: 7 lb 14.6 oz Post-operative Condition: stable Disposition: PACU Aftercare: routine postop
[2022-04-06 14:37] VITALS: BP 146/76; PULSE 93; RESP 16; TEMP 37.3; O2SAT 98
[2022-04-06 14:47] VITALS: BP 162/77; PULSE 88; RESP 16; O2SAT 98
[2022-04-06 14:50] VITALS: BP 137/76; PULSE 88; RESP 16; TEMP 37.3; O2SAT 100
[2022-04-06 17:30] LABS: Hematocrit 30.3 % (36-46); Hemoglobin 10.2 g/dL (12.0-16.0)
[2022-04-06] MEDS: KETOROLAC 30 MG/ML VIAL IV (22:46)
[2022-04-06] MEDS: LANOLIN OINT 7 GM 1 APPLIC TOP (22:47)
[2022-04-07] MEDS: diphenhydrAMINE 50 MG/ML VIAL 25 MG IV (04:04)
[2022-04-07] MEDS: ACETAMINOPHEN 325 MG TABLET 650 MG PO ×3 (04:36→18:51)
[2022-04-07] MEDS: IBUPROFEN 600 MG TABLET PO ×3 (04:37→18:53)
[2022-04-07] MEDS: PRENATAL VIT,CALC/IRON/FOLIC 1 TABLET 1 TAB PO (08:49)
[2022-04-07] MEDS: DOCUSATE 100 MG CAPSULE 200 MG PO (08:49)
[2022-04-07 15:00] VITALS: BP 115/75; PULSE 87; RESP 16; TEMP 36.6
--- NOTE | 2022-04-07 15:22 | P.PNOB_ITS ---
Subjective - OB Subjective Patient comments: no complaints, pain well controlled, tolerating diet and other (Difficulty urinating had in and out catheterization) [place] baby status: doing well [place] feeding status: exclusively breast feeding Date Patient Seen: 04/07/22 Time Patient Seen: 14:00 Interval history: Patient is a 32-year-old 1 para 1 postop day # 1 status post primary section after a stage I arrest of labor. Patient was not able to urinate after Kraus catheter was removed. An in and out catheterization was performed yielding 800 cc of clear yellow urine. 2 hours later patient voided spontaneously 1100 cc of clear yellow urine. Exam Vital Signs (past 8 hours): Oxygen Delivery Method Room Air Narrative Exam Narrative: Generally: Patient is sitting up in bed, no acute distress Lungs: Clear to auscultation bilaterally Cardiovascular: Regular rate and rhythm Fundus: Firm at U -1 Incision: Clean dry and intact with Aquacel dressing Extremities: Trace edema, negative Homans Objective Labs Result Diagrams: 04/06/22 16:25 04/04/22 21:25 Labs: Laboratory Results - last 24 hr 04/06/22 16:25 Hgb 10.2 L Hct 30.3 L Assessment & Plan Plan day: 1 plan OB: routine care (Encourage patient to void every 2 to 2-1/2 hours) Time Spent With Patient Time: Total time spent is greater than 50% in coordination of care (as documented) at patient's floor/unit and/or counseling patient: Time with patient: less than 15 minutes
[2022-04-08] MEDS: IBUPROFEN 600 MG TABLET PO ×2 (01:01→06:53)
[2022-04-08] MEDS: ACETAMINOPHEN 325 MG TABLET 650 MG PO ×2 (01:01→06:53)
[2022-04-08] MEDS: OXYCODONE IR 5 MG TABLET PO ×2 (07:17→11:59)
[2022-04-08] MEDS: DOCUSATE 100 MG CAPSULE 200 MG PO (10:13)
[2022-04-08] MEDS: PRENATAL VIT,CALC/IRON/FOLIC 1 TABLET 1 TAB PO (10:13)
--- NOTE | 2022-04-08 10:55 | P.DS_ITS ---
Discharge Providers Provider Date of admission: 04/04/22 20:18 Discharge Date: 04/08/22 Primary care physician: Cecile Consults: 04/04/22 21:43 Consult to Anesthesiology Urgent Comment: Consulting Provider: Anesthesiologist Reason for consultation: labor 04/07/22 05:00 Consult to Director Of Hotel Operations Routine Comment: Discharge provider: Bailee Robert MD Summary Hospital Course Date Patient Seen: 04/08/22 Time Patient Seen: 10:55 Diagnoses: 39-,1/7 weeks gestation Gestational hypertension Cervical ripening with Cervidil and Kraus bulb Induction of labor with Pitocin Artificial rupture of membranes Intrauterine pressure catheter Amnio infusion Primary low-transverse section Hospital Course: Patient is a 32-year-old 1 para 1 who presented on May 04, 2022 for cervical ripening with Cervidil. On the morning of April 05, 2022 she was found to be unfavorable. A Kraus bulb was placed. She became favorable by 5:00 p.m. that day. Pitocin induction of labor was started. Later on the evening of April 05, 2022 she had artificial rupture of membranes with clear amniotic fluid. She received an epidural for pain management. On the morning of April 06, 2022 she began having late decelerations and had a slow progression of labor. An intrauterine pressure catheter was placed and amnio infusion started. She progressed to 8 cm from 6 cm earlier in the morning. She then began having persistent late decelerations. A primary low-transverse section was performed with baby in the L OT presentation. Her course was unremarkable. Peripartum Data Delivery Method: Section Laceration Description: None Episiotomy description: None Procedures: Cervidil cervical ripening Kraus bulb cervical ripening Pitocin induction of labor Artificial rupture of membranes Epidural analgesia Intrauterine pressure catheter placement Amnio infusion Primary low-transverse section complications: none 1: Gender: Male Disposition of : home Status at Discharge Cognitive/behavioral status at discharge: oriented Functional status at discharge: independent ambulation Overall status at discharge: patient is progressing back to baseline Time Spent with Patient Time attestation: Total time spent providing and/or coordinating discharge services: Time spent: Less than 30 minutes Objective Labs Result Diagrams: 04/06/22 16:25 04/04/22 21:25 Exam Vital Signs (past 8 hours): Oxygen Delivery Method Room Air Narrative Exam Narrative: Generally: Patient standing up in room, no acute distress Lungs: Clear to auscultation bilaterally Cardiovascular: Regular rate and rhythm Fundus: Firm at U-1 Incision: Clean dry and intact with Aquacel dressing Extremities: 1+ edema, negative Homans, no clonus Discharge Plan Discharge Plan Patient Disposition: Home Provider Discharge Comment: Call with fever, chills, or redness or drainage around the incision Tylenol 650 mg every 6 hours as needed Ibuprofen 600 mg every 6 hours as needed Oxycodone every 3 hours as needed Discharge orders & Medications Prescriptions: New oxycodone 5 mg tablet 5 mg PO Q4H PRN (Reason: pain) Qty: 20 0RF Continued prenat.vits,jack,qrx-cden-ygnts Tablet 1 tab PO DAILY Qty: 100 0RF No Action (DME) double electric breast pump and supplies See Rx Instructions .Route .MEDSUPPLY Qty: 1 0RF Rx Instructions: As directed Follow up/Referrals: Nicole Huber DO [Physician] - 04/12/22 11:00 am Diet/Activity/Treatments Diet: Regular Activity: No heavy lifting Skin/Wound/Dressing Care Report to your healthcare provider any signs of infection, such as:: chills, fever, increased pain, unusual drainage and unusual redness Dressing: Do not remove Visit Report/Discharge Packet Instructions: DI for , DI for Prescription Opioid Use Stand Alone Forms: Discharge: Care
== END 2022-04-08 12:37 | disposition home or self-care (01) | DRG 788 ==
PROVIDERS: Admitting Provider Family Medicine; Referring Provider Family Medicine; Visit Provider Family Medicine
PROC: 10D00Z1 Extraction of Products of Conception, Low, Open Approach (ICD-10-PCS; CPT 59514; principal; 2022-04-06 13:00)
DX: O76 Abnormality in fetal heart rate and rhythm complicating labor and delivery (principal); O14.04 Mild to moderate pre-eclampsia, complicating childbirth; Z3A.39 39 weeks gestation of pregnancy; Z37.0 Single live birth; O99.824 Streptococcus B carrier state complicating childbirth; Z20.822 Contact with and (suspected) exposure to COVID-19
CPT/HCPCS: 01967; 01968; 36415; 59050; 59200; 59510; 59514; 80048; 82570; 84156; 84450; 84550; 85014; 85018; 85025; 86850; 86900; 86901; 87635; C9803; G0379; J0131; J0690; J1200; J1885; J2274; J2540; J2590

== ENCOUNTER → 2023-08-22 08:42 | Outpatient (CLI) | payer OTHER, SELFPAY ==
--- NOTE | 2023-08-22 08:44 | DI.US.S_ITS ---
PROCEDURE: US PELVIC COMPLETE INDICATIONS: DATING/VIABILITY TECHNIQUE: Real-time scanning was performed of the pelvic organs, with image documentation. Additional endovaginal scanning was necessary due to incomplete visualization of the adnexal and endometrial structures by transabdominal scanning. COMPARISON: None. FINDINGS: Uterus: Uterus is retroverted and normal in size at 7 x 6.6 x 4.4 cm. The myometrium is homogeneous. The endometrium measures 7 mm combined thickness. No sonographic evidence of an intrauterine . Ovaries: The right ovary measures 3.1 x 1.6 x 1.6 cm. The left ovary measures 3.5 x 2.2 x 1.8 cm. The ovaries have a normal sonographic appearance. Less than 12 follicles can be seen in each ovary. No adnexal masses are seen. Other: No pathologic free abdominal or pelvic fluid. IMPRESSION: 1. No sonographic evidence of an intrauterine . Recommend correlation with beta HCG and short interval follow-up, if clinically indicated. 2. Bilateral ovaries are unremarkable. Dictated by: Gabriel Valdez M.D. on 08/22/2023 at 9:28 Approved by: Gabriel Valdez M.D. on 08/22/2023 at 9:33
== END ==
PROVIDERS: PCP Family Medicine; Referring Provider Family Medicine; Visit Provider Family Medicine
DX: O36.80X0 Pregnancy with inconclusive fetal viability, not applicable or unspecified (principal)
CPT/HCPCS: 76830; 76856

== ENCOUNTER 2023-10-02 15:39 | Emergency (ER) | payer OTHER, SELFPAY ==
[2023-10-02 15:48] VITALS: BP 133/86; PULSE 71; RESP 16; TEMP 36.3; O2SAT 99; BMI 32.4
--- NOTE | 2023-10-02 15:53 | DI.US.S_ITS ---
PROCEDURE: US OB <= 14 WEEKS FETUS INDICATIONS: 6 weeks preg/abd pain/denies bleeding OUTSIDE/PRIOR DATING DATA: Last menstrual period (LMP): 08/21/2023. LMP-based estimated date of delivery ([facility]): 05/27/2024. First dating scan (date and location): 10/02/2023. Estimated date of delivery ([facility]) from first dating scan: 05/30/2024. TECHNIQUE: Real-time scanning was performed of the fetus and maternal pelvic organs, with image documentation. Endovaginal scanning was also performed to better visualize the fetus and maternal ovaries. COMPARISON: [facility], OB <= 14 WEEKS FETUS, 09/06/2021, 13:39. FINDINGS: There is an intrauterine fluid-filled focus measuring 8 mm corresponding to a 5 week 4 day gestation. No cardiac activity is seen. Maternal organs: Ovaries demonstrated corpus luteal cyst within the right ovary. Left ovary is not seen.. IMPRESSION: Findings consistent with a single early intrauterine gestation. Continued follow-up is recommended to document viability. We strive to produce accurate, complete, and clear reports of imaging services. To assist us in improving patient care, this report was composed using standard report templates and voice recognition software. Therefore, it may contain abnormal punctuation, insertions and/or omissions. Occasional wrong-word or sound-alike substitutions may occur. Though we review the report and make efforts to correct it, we do recommend that the report be read carefully in proper context to recognize any text inaccuracies. Dictated by: Jyoti Colmenares M.D. on 10/02/2023 at 16:35 Approved by: Jyoti Colmenares M.D. on 10/02/2023 at 16:37
[2023-10-02 16:46] LABS: Add Manual Diff / Slide Review NO; Basophils Absolute Auto 100 /uL (0-100); Eosinophils Absolute Auto 100 /uL (0-450); Eosinophils Percent Auto 1.8 % (2-4); Hematocrit 41.6 % (36-46); Hemoglobin 14.1 g/dL (12.0-16.0); Lymphocytes Absolute Auto 2100 /uL (1100-4500); Lymphocytes Percent Auto 29.3 % (25-40); Mean Corpuscular Hemoglobin 28.8 PG (26-34); Mean Corpuscular Volume 84.8 fL (80-100); Monocytes Absolute Auto 600 /uL (0-900); Monocytes Percent Auto 7.8 % (3-14); Neutrophils Absolute Auto 4400 /uL (1500-7000); Neutrophils Percent Auto 60.1 % (50-75); Platelet Count 367 X10^3/uL (150-400); Red Cell Distribution Width 13.6 % (11.6-14.8); White Blood Cell Count 7.3 X10^3/uL (4.5-11.0)
[2023-10-02 17:06] LABS: Alanine Aminotransferase 26 IU/L (<35); Albumin 4.6 g/dL (3.5-5.0); Albumin Globulin Ratio 1.2 (1.0-2.8); Alkaline Phosphatase 69 U/L (38-126); Aspartate Aminotransferase 30 IU/L (14-36); BUN Creatinine Ratio 24.6 (6-22); Bilirubin Total 0.6 mg/dL (0.2-1.3); Blood Urea Nitrogen 15 mg/dL (7-17); Calcium 9.6 mg/dL (8.4-10.2); Carbon Dioxide 36 mmol/L (22-32); Chloride 103 mmol/L (98-107); Estimated Glomerular Filt Rate > 60 mL/min (>60); Globulin 3.8 g/dL (1.7-4.1); Glucose 109 mg/dL (70-100); HEMOLYSIS < 15 (0-50); Potassium 3.6 mmol/L (3.4-5.1); Sodium 138 mmol/L (137-145); Total Protein 8.4 g/dL (6.3-8.2)
[2023-10-02 17:19] VITALS: BP 119/58; PULSE 75; RESP 18; TEMP 36.7; O2SAT 98
--- NOTE | 2023-10-02 17:21 | PC.NURSE ---
pt referred to us by triage nurse on phone for cramping and r/o ectopic. recent miscarriage.
[2023-10-02 17:23] LABS: HCG Quantitative /Beta subunit 7418.5 mIU/mL
--- NOTE | 2023-10-02 18:37 | ED_ITS ---
HPI - <Dunia Mcneal PA-C - Last Filed: 10/02/23 18:44> General Chief complaint: Abdominal Pain Stated complaint: [facility] SENT FOR DI/US , 6WKS Time Seen by Provider: 10/02/23 17:06 History of Present Illness HPI Narrative: Patient is a 33-year-old who presents for cramping in early . She reports having a miscarriage last month at approximately 6 weeks. She estimates she is currently 6 weeks . She noted lower abdominal pain and cramping today. She has had no bleeding. She denies any urinary symptoms. She has no fever. She has not yet had an ultrasound. Related Data Previous Rx's Medication Instructions Recorded prenat.vits,jack,[id number] 1 tab PO DAILY #100 tabs 09/18/21 double electric breast pump and #1 ea 08/07/22 supplies Allergies Allergy/AdvReac Type Severity Reaction Status Date / Time Sulfa (Sulfonamide Allergy Intermediate Rash Verified 10/03/23 08:34 Antibiotics) chlorhexidine Allergy Intermediate Rash Uncoded 10/03/23 08:34 Review of Systems <Dunia Mcneal PA-C - Last Filed: 10/02/23 18:44> Review of Systems ROS Unobtainable: All systems reviewed & are unremarkable except as noted in HPI and below Exam <Dunia Mcneal PA-C - Last Filed: 10/02/23 18:44> Narrative Exam Narrative: GENERAL: 33 year old patient appears stated age. Well-developed patient, in no acute distress. NEURO: AOx3. HEAD: Atraumatic. Normocephalic. EYES: Pupils equal round and reactive. Extraocular motions intact. No scleral icterus. No injection or drainage. ENT: Nose without bleeding or purulent drainage. Airway patent. RESPIRATORY: No distress. ABDOMEN: Nontender, no CVA tenderness. EXTREMITIES: No edema or joint tenderness. SKIN: No rash or erythema of visible areas Initial Vital Signs Initial Vital Signs: Vital Signs Temperature 97.4 F L 10/02/23 15:48 Pulse Rate 71 10/02/23 15:48 Respiratory Rate 16 10/02/23 15:48 Blood Pressure 133/86 10/02/23 15:48 Pulse Oximetry 99 10/02/23 15:48 Oxygen Delivery Method Room Air 10/02/23 15:48 <Edelmira Edmond MD - Last Filed: 10/08/23 04:11> Initial Vital Signs Initial Vital Signs: Vital Signs Temperature 97.4 F L 10/02/23 15:48 Pulse Rate 71 10/02/23 15:48 Respiratory Rate 16 10/02/23 15:48 Blood Pressure 133/86 10/02/23 15:48 Pulse Oximetry 99 10/02/23 15:48 Oxygen Delivery Method Room Air 10/02/23 15:48 Course <Dunia Mcneal PA-C - Last Filed: 10/02/23 18:44> Orders Ordered: ED Orders 10/02/23 15:53 US OB <= 14 weeks fetus Stat 10/02/23 16:19 ABO RH Type Stat Complete Blood Count AUTO DIFF Stat Comprehensive Metabolic Panel Stat HCG Quantitative /Beta subunit Stat Vital Signs Vital signs: Vital Signs - 8 hr 10/02/23 15:48 10/02/23 17:19 Temperature 97.4 F L 98.1 F Pulse Rate 71 75 Respiratory Rate 16 18 Blood Pressure 133/86 119/58 L Pulse Oximetry 99 98 Oxygen Delivery Method Room Air Room Air <Edelmira Edmond MD - Last Filed: 10/08/23 04:11> Orders Ordered: ED Orders 10/02/23 15:53 US OB <= 14 weeks fetus Stat 10/02/23 16:19 ABO RH Type Stat Complete Blood Count AUTO DIFF Stat Comprehensive Metabolic Panel Stat HCG Quantitative /Beta subunit Stat Vital Signs Vital signs: Vital Signs - 8 hr 10/02/23 15:48 10/02/23 17:19 Temperature 97.4 F L 98.1 F Pulse Rate 71 75 Respiratory Rate 16 18 Blood Pressure 133/86 119/58 L Pulse Oximetry 99 98 Oxygen Delivery Method Room Air Room Air MDM - OB/Uterine Contractions <Dunia Mcneal PA-C - Last Filed: 10/02/23 18:44> Lab Data 10/02/23 16:19 10/02/23 16:19 Labs: Lab Results 10/02/23 Range/Units 16:19 WBC 7.3 (4.5-11.0) X10^3/uL RBC 4.90 (4.0-5.2) X10^6/uL Hgb 14.1 (12.0-16.0) g/dL Hct 41.6 (36-46) % MCV 84.8 (80-100) fL MCH 28.8 (26-34) PG MCHC 34.0 (30-36) % RDW 13.6 (11.6-14.8) % Plt Count 367 (150-400) X10^3/uL Neut % (Auto) 60.1 (50-75) % Lymph % (Auto) 29.3 (25-40) % [place] % (Auto) 7.8 (3-14) % Eos % (Auto) 1.8 L (2-4) % Baso % (Auto) 1.0 (0-2) % Neut # (Auto) 4400 (8958-6927) /uL Lymph # (Auto) 2100 (3046-4151) /uL [place] # (Auto) 600 (0-900) /uL Eos # (Auto) 100 (0-450) /uL Baso # (Auto) 100 (0-100) /uL Sodium 138 (137-145) mmol/L Potassium 3.6 (3.4-5.1) mmol/L Chloride 103 (98-107) mmol/L Carbon Dioxide 36 H (22-32) mmol/L BUN 15 (7-17) mg/dL Creatinine 0.61 (0.52-1.04) mg/dL Estimated GFR > 60 (>60) mL/min BUN/Creatinine Ratio 24.6 H (6-22) Glucose 109 H (70-100) mg/dL Calcium 9.6 (8.4-10.2) mg/dL Total Bilirubin 0.6 (0.2-1.3) mg/dL AST 30 (14-36) IU/L ALT 26 (<35) IU/L Alkaline Phosphatase 69 (38-126) U/L Total Protein 8.4 H (6.3-8.2) g/dL Albumin 4.6 (3.5-5.0) g/dL Globulin 3.8 (1.7-4.1) g/dL Albumin/Globulin Ratio 1.2 (1.0-2.8) HCG, Quant 7418.5 mIU/mL Blood Type O Positive Urine Dip Bedside Urine Glucose Negative Bedside Urine Bilirubin - Negative Bedside Urine Ketone - Negative Urine Specific [place] 1.015 Bedside Urine Occult Blood - Negative Bedside Urine pH 6 Bedside Urine Protein - Negative Bedside Urine Urobilinogen - Negative Bedside Urine Nitrite - Negative Bedside Urine Leukocytes - Negative Esterase Imaging Data US - OB: Radiologist's Impression: PROCEDURE: US OB <= 14 WEEKS FETUS INDICATIONS: 6 weeks preg/abd pain/denies bleeding OUTSIDE/PRIOR DATING DATA: Last menstrual period (LMP): 08/21/2023. LMP-based estimated date of delivery (K[facility]): 05/27/2024. First dating scan (date and location): 10/02/2023. Estimated date of delivery ([facility]) from first dating scan: 05/30/2024. TECHNIQUE: Real-time scanning was performed of the fetus and maternal pelvic organs, with image documentation. Endovaginal scanning was also performed to better visualize the fetus and maternal ovaries. COMPARISON: [facility], , US OB <= 14 WEEKS FETUS, 09/06/2021, 13:39. FINDINGS: There is an intrauterine fluid-filled focus measuring 8 mm corresponding to a 5 week 4 day gestation. No cardiac activity is seen. Maternal organs: Ovaries demonstrated corpus luteal cyst within the right ovary. Left ovary is not seen.. IMPRESSION: Findings consistent with a single early intrauterine gestation. Continued follow-up is recommended to document viability. We strive to produce accurate, complete, and clear reports of imaging services. To assist us in improving patient care, this report was composed using standard report templates and voice recognition software. Therefore, it may contain abnormal punctuation, insertions and/or omissions. Occasional wrong-word or sound-alike substitutions may occur. Though we review the report and make efforts to correct it, we do recommend that the report be read carefully in proper context to recognize any text inaccuracies. Dictated by: Jyoti Colmenares M.D. on 10/02/2023 at 16:35 Approved by: Jyoti Colmenares M.D. on 10/02/2023 at 16:37 MDM Narrative Medical decision making narrative: Multiple etiologies for patient's symptoms considered including, but not limited to: Normal early , threatened miscarriage Patient estimates she is approximately 6 weeks and experiencing crampy today without bleeding. She had a recent miscarriage. Ultrasound shows an early (5 week 4 days) single intrauterine . Heartbeat is not detected. Labs without evidence of infection or clinically significant abnormality, urine without evidence of infection. Blood type O positive. Beta hCG is 7418, within normal limits for early gestation . CO2 noted to be 36 on the labs; lab is having trouble with the machine and many lab results are turning up elevated. We suspect this is an error. Provided this information to patient and her . Advised continued watchful waiting. Patient and her are very excited. If she develops significant heavy bleeding, fever or other symptoms, she should return. If she develops spotting or light bleeding, she is welcome to remain at home or return for reassessment. Many pregnancies will persist despite early cramping and spotting. Patient understands return precautions and instructions and has follow up scheduled for 1st OB visit. Patient's symptoms improved over duration of stay with above-stated therapies. Findings and discharge diagnosis discussed with patient/family followed by verbalization of understanding Return precautions discussed with patient/family whom verbalize understanding of diagnosis and plan <Edelmira Edmond MD - Last Filed: 10/08/23 04:11> Lab Data Labs: Lab Results 10/02/23 Range/Units 16:19 WBC 7.3 (4.5-11.0) X10^3/uL RBC 4.90 (4.0-5.2) X10^6/uL Hgb 14.1 (12.0-16.0) g/dL Hct 41.6 (36-46) % MCV 84.8 (80-100) fL MCH 28.8 (26-34) PG MCHC 34.0 (30-36) % RDW 13.6 (11.6-14.8) % Plt Count 367 (150-400) X10^3/uL Neut % (Auto) 60.1 (50-75) % Lymph % (Auto) 29.3 (25-40) % [place] % (Auto) 7.8 (3-14) % Eos % (Auto) 1.8 L (2-4) % Baso % (Auto) 1.0 (0-2) % Neut # (Auto) 4400 (1662-0979) /uL Lymph # (Auto) 2100 (9029-6979) /uL [place] # (Auto) 600 (0-900) /uL Eos # (Auto) 100 (0-450) /uL Baso # (Auto) 100 (0-100) /uL Sodium 138 (137-145) mmol/L Potassium 3.6 (3.4-5.1) mmol/L Chloride 103 (98-107) mmol/L Carbon Dioxide 36 H (22-32) mmol/L BUN 15 (7-17) mg/dL Creatinine 0.61 (0.52-1.04) mg/dL Estimated GFR > 60 (>60) mL/min BUN/Creatinine Ratio 24.6 H (6-22) Glucose 109 H (70-100) mg/dL Calcium 9.6 (8.4-10.2) mg/dL Total Bilirubin 0.6 (0.2-1.3) mg/dL AST 30 (14-36) IU/L ALT 26 (<35) IU/L Alkaline Phosphatase 69 (38-126) U/L Total Protein 8.4 H (6.3-8.2) g/dL Albumin 4.6 (3.5-5.0) g/dL Globulin 3.8 (1.7-4.1) g/dL Albumin/Globulin Ratio 1.2 (1.0-2.8) HCG, Quant 7418.5 mIU/mL Blood Type O Positive Urine Dip Bedside Urine Glucose Negative Bedside Urine Bilirubin - Negative Bedside Urine Ketone - Negative Urine Specific [place] 1.015 Bedside Urine Occult Blood - Negative Bedside Urine pH 6 Bedside Urine Protein - Negative Bedside Urine Urobilinogen - Negative Bedside Urine Nitrite - Negative Bedside Urine Leukocytes - Negative Esterase Discharge Plan Departure Patient Disposition: Home Clinical Impression: at early stage Instructions: Early Bleeding Activity Restrictions/Additional Instructions: *You have been diagnosed with early cramping. Cramping can be very normally in early . The ultrasound today shows a very early intrauterine . This means the is in the correct location. They were not able to see a heart beat but this is normal at 5-6 weeks of . As we discussed, if you develop heavy bleeding, a fever or other concerning symptoms, please come back for reassessment. If you do start spotting or bleeding at home, it is also safe to stay at home. There is not much we can do early in to reverse an impending miscarriage. It can also be normal to have bleeding during early and have the continue on. I wish you the very best! *What to do: *Please continue to take your regular medications as directed. [ ] New medication prescriptions sent to your pharmacy: [ ] [ ] New medication written as a paper prescription [x] No new medications given *Please follow up with your primary care provider in 2-3 days, call for an appointment. Let them know you were seen in the Emergency Department and that we ask that you be seen in follow up. We will electronically transmit a record of today's note if your PCP is in our system *If you do not have a primary care provider please contact the [facility] Resource line at [phone]. They will ask some questions about your medical history and help get you set up with a doctor in the community. *Return to Emergency Department if you should have any new, worsening or concerning symptoms, such as [fever greater than 101 F, shaking chills, worsening pain, persistent vomiting or other concerning symptoms]. Prescriptions: No Action (DME) double electric breast pump and supplies See Rx Instructions .ROUTE .MEDSUPPLY Qty: 1 0RF Rx Instructions: As directed Patient Child is now 4months 1days old. prenat.vits,jack,[id number] Tablet 1 tab PO DAILY Qty: 100 0RF Referrals: Kalyn Araya MD [Primary Care Provider] - Stand Alone Forms: Patient Portal/API ED Sign-out <Edelmira Edmond MD - Last Filed: 10/08/23 04:11> Cosign ED Attending Yani Attestation: I was immediately available in the department for consultation throughout this patient's visit. Edelmira Edmond MD
== END 2023-10-02 17:28 | disposition home or self-care (01) ==
PROVIDERS: Emergency Medicine; Emergency Provider Physician Assistant; PCP Family Medicine
DX: O26.91 Pregnancy related conditions, unspecified, first trimester (principal); Z3A.01 Less than 8 weeks gestation of pregnancy
CPT/HCPCS: 76801; 76817; 80053; 81003; 84702; 85025; 86900; 86901; 99282; 99284

== ENCOUNTER → 2023-10-16 15:22 | Outpatient (CLI) | payer OTHER, SELFPAY ==
--- NOTE | 2023-10-16 15:22 | DI.US.S_ITS ---
PROCEDURE: US OB <= 14 WEEKS FETUS INDICATIONS: dating and viability OUTSIDE/PRIOR DATING DATA: Last menstrual period (LMP): 08/21/2023 LMP-based estimated date of delivery ([facility]): 05/27/2024 First dating scan (date and location): 10/02/2023 Estimated date of delivery ([facility]) from first dating scan: 05/30/2024. The calculations are made using the working KAMRON of 06/04/2024 TECHNIQUE: Real-time scanning was performed of the fetus and maternal pelvic organs, with image documentation. Endovaginal scanning was also performed to better visualize the fetus and maternal ovaries. COMPARISON: [facility], , OB <= 14 WEEKS FETUS, 10/02/2023, 16:07. FINDINGS: Embryo: Single intrauterine gestation is seen with fetus and yolk sac seen. [place]-rump length measures 0.9 cm. Estimated gestational age is 6 weeks, 6 days. Heart rate: 143 beats per minute. Maternal organs: Ovaries are visualized and are within normal limits. Previously described corpus luteal cyst in right ovary is grossly unchanged. IMPRESSION: 1. Single live intrauterine gestation with fetus and yolk sac seen. heart rate is 143 beats per minute. Estimated gestational age is 6 weeks, 6 days. 2. Suggestion of corpus luteal cyst in right ovary unchanged from prior study. No perigestational hemorrhage. We strive to produce accurate, complete, and clear reports of imaging services. To assist us in improving patient care, this report was composed using standard report templates and voice recognition software. Therefore, it may contain abnormal punctuation, insertions and/or omissions. Occasional wrong-word or sound-alike substitutions may occur. Though we review the report and make efforts to correct it, we do recommend that the report be read carefully in proper context to recognize any text inaccuracies. Dictated by: Alberto Ariza M.D. on 10/16/2023 at 17:09 Approved by: Alberto Ariza M.D. on 10/16/2023 at 17:11
== END ==
LOC: US 15:22
PROVIDERS: PCP Family Medicine; Referring Provider Family Medicine; Visit Provider Family Medicine
DX: Z34.81 Encounter for supervision of other normal pregnancy, first trimester (principal); Z3A.01 Less than 8 weeks gestation of pregnancy
CPT/HCPCS: 76801; 76817

== ENCOUNTER → 2023-11-28 12:54 | Outpatient (CLI) | payer OTHER, SELFPAY ==
[2023-11-28 14:38] LABS: Add Manual Diff / Slide Review NO; Basophils Absolute Auto 0 /uL (0-100); Basophils Percent Auto 0.5 % (0-2); Eosinophils Absolute Auto 100 /uL (0-450); Eosinophils Percent Auto 1.6 % (2-4); Hematocrit 36.4 % (36-46); Hemoglobin 12.6 g/dL (12.0-16.0); Lymphocytes Absolute Auto 1800 /uL (1100-4500); Lymphocytes Percent Auto 23.9 % (25-40); Mean Corpuscular HGB Conc 34.5 % (30-36); Mean Corpuscular Hemoglobin 29.8 PG (26-34); Mean Corpuscular Volume 86.3 fL (80-100); Monocytes Absolute Auto 500 /uL (0-900); Monocytes Percent Auto 6.6 % (3-14); Neutrophils Absolute Auto 5200 /uL (1500-7000); Neutrophils Percent Auto 67.4 % (50-75); Platelet Count 317 X10^3/uL (150-400); Red Blood Cell Count 4.22 X10^6/uL (4.0-5.2); Red Cell Distribution Width 13.5 % (11.6-14.8); White Blood Cell Count 7.7 X10^3/uL (4.5-11.0)
[2023-11-28 15:04] LABS: Alanine Aminotransferase 11 IU/L (<35); Aspartate Aminotransferase 20 IU/L (14-36); BUN Creatinine Ratio 23.3 (6-22); Blood Urea Nitrogen 10 mg/dL (7-17); Estimated Glomerular Filt Rate > 60 mL/min (>60); Uric Acid 3.4 mg/dL (2.5-6.2)
[2023-11-28 15:43] LABS: Appearance Urine UA CLEAR; Bilirubin Urine UA NEGATIVE (NEGATIVE); Color Urine UA YELLOW; Glucose Urine UA NEGATIVE (Negative); Ketones Urine UA NEGATIVE (NEGATIVE); Leukocyte Esterase Urine UA NEGATIVE (NEGATIVE); Nitrite Urine UA NEGATIVE (Negative); Occult Blood Urine UA NEGATIVE (Negative); Protein Urine UA NEGATIVE (Negative); Urobilinogen Urine UA 0.2 E.U./dL (0.2)
[2023-11-28 17:10] LABS: Hepatitis B Surface Antigen NEGATIVE s/c (NEGATIVE); Rubella Antibody IgG 74.2 IU/mL (>15)
[2023-11-28 17:23] LABS: Urine N gonorrhoeae NOT DETECTED
[2023-11-28 17:26] LABS: HIV 1 & 2 Ab/Ag 4th Gen Combo NEGATIVE (NEGATIVE); Hep C Virus Ab w/Reflex Quant NEGATIVE s/c (NEGATIVE)
[2023-11-28 17:27] LABS: Urine Chlamydia NOT DETECTED
== END ==
PROVIDERS: PCP Family Medicine; Referring Provider Family Medicine; Visit Provider Family Medicine
DX: Z34.02 Encounter for supervision of normal first pregnancy, second trimester (principal); Z34.80 Encounter for supervision of other normal pregnancy, unspecified trimester; Z34.01 Encounter for supervision of normal first pregnancy, first trimester; Z87.59 Personal history of other complications of pregnancy, childbirth and the puerperium
CPT/HCPCS: 80055; 81003; 82565; 84450; 84460; 84520; 84550; 86787; 86803; 86850; 86900; 86901; 87086; 87389; 87491; 87591

== ENCOUNTER → 2024-01-08 12:11 | Outpatient (CLI) | payer OTHER, SELFPAY ==
--- NOTE | 2024-01-08 12:12 | DI.US.S_ITS ---
PROCEDURE: US OB >= 14 WEEKS FETUS INDICATIONS: Anatomy dating OUTSIDE/PRIOR DATING DATA: Last menstrual period (LMP): 08/21/2023. LMP-based estimated date of delivery ([facility]): 05/27/2024. First dating scan (date and location): 10/02/2023. Estimated date of delivery ([facility]) from first dating scan: 05/30/2024. The calculations are made using the ultrasound [facility] of 06/04/2024. TECHNIQUE: Real-time scanning was performed of the fetus, with image documentation and biometric measurements. Endovaginal scanning: Not performed COMPARISON: [facility], OB <= 14 WEEKS FETUS, 10/16/2023, 15:33. FINDINGS: General: A single living intrauterine gestation is present. Presentation: Vertex. Placenta: Placental position is posterior. Low lying placenta 1.7 cm from the internal cervical os. Amniotic fluid index: 13.5 cm, normal range is 5-24 cm. Single deepest vertical pocket is 4.9 cm. heart rate: 145 beats per minute. Maternal cervical canal: 4.6 cm long. Normal lower limit is 2.5 cm. biometrics: Biparietal diameter: 4.3 cm, 19 weeks 0 days Head circumference: 16.5 cm, 19 weeks 2 days Abdominal circumference: 15.3 cm, 20 weeks 4 days Femur length: 2.9 cm, 19 weeks 0 days Clinically estimated gestational age: 18 weeks 6 days Composite gestational age from present scan: 19 weeks 3 days Estimated weight and percentile: 311 g, 91st percentile Anatomic survey: Neuro: Ventricles are non-dilated at less than 10 mm. Cisterna magna is normal at 3-11 mm. Cerebellum is normal in size and morphology. Nuchal skin fold: Normal at less than 6 mm between 14-21 weeks gestational age. Face: Nose and lips, facial profile are normal. Spine: No evidence for spina bifida. Heart: 4-chambered heart is present, with normal ventricular outflow tracts. Diaphragm: Diaphragm is intact. Stomach: Left-sided stomach is present. Kidneys: No hydronephrosis. Normal is less than 5 mm in 2nd trimester, less than 7 mm in 3rd trimester. Cord: 3-vessel cord has orthotopic insertion. Bladder: Normal in size. Extremities: All 4 extremities identified. IMPRESSION: 1. Nathan living intrauterine at 19 weeks 3 days based on today's ultrasound. Fetus is in the 91st percentile for weight. 2. Normal amniotic fluid. Low lying placenta 1.7 cm from the internal cervical os. 3. Normal anatomic survey. Recommend follow-up OB ultrasound. We strive to produce accurate, complete, and clear reports of imaging services. To assist us in improving patient care, this report was composed using standard report templates and voice recognition software. Therefore, it may contain abnormal punctuation, insertions and/or omissions. Occasional wrong-word or sound-alike substitutions may occur. Though we review the report and make efforts to correct it, we do recommend that the report be read carefully in proper context to recognize any text inaccuracies. Dictated by: Navdeep Valencia M.D. on 01/08/2024 at 16:33 Approved by: Navdeep Valencia M.D. on 01/08/2024 at 16:38
[2024-01-08 16:06] LABS: Natera Collection Specimen Collected
== END ==
PROVIDERS: PCP Family Medicine; Referring Provider Family Medicine; Visit Provider Family Medicine
DX: O09.292 Supervision of pregnancy with other poor reproductive or obstetric history, second trimester (principal); O99.342 Other mental disorders complicating pregnancy, second trimester; Z3A.19 19 weeks gestation of pregnancy
CPT/HCPCS: 36415; 76811